=== PATIENT | female | born 1955 | race Caucasian/White ===

== ENCOUNTER 2020-09-08 04:02 | Inpatient (IN) | payer OTHER, MEDICARE ==
[~2020-09-08] VITALS: Ht 167.6 cm; Wt 77.4 kg
[~2020-09-08 04:02] MED LIST: CELE200C PO; ESCI10TA10 PO; ESCI5TAB7 PO; OXYC-307 PO; PREG75CA PO; TRAM50TA2 PO; ZOLP-413 PO; ZOLP10TA PO
--- NOTE | 2020-09-08 04:09 | NUR ---
Pt brought in by L[facility]ZARO from home for chief complaint of left leg hip pain after GLF, no loc reported. CMS intact.
[2020-09-08] MEDS ORDERED: HYDROmorphone 1 MG/ML, 1ML INJ ONE ×2 (04:26→05:25)
[2020-09-08] MEDS: HYDROmorphone 1 MG/ML, 1ML INJ IVPush PRN ×2 (04:27→05:31)
[2020-09-08 05:26] LABS: BASOPHILS % (AUTO) 0 % (0-1); EOSINOPHILS % (AUTO) 1 % (1-7); LYMPHOCYTES % (AUTO) 15 % (22-44); MEAN CORPUSCULAR HEMOGLOBIN 30.6 pg (27.0-34.8); MEAN CORPUSCULAR HGB CONC 33.3 g/dL (32.4-35.8); MEAN PLATELET VOLUME 7.6 fL (7.4-10.4); MONOCYTES % (AUTO) 8 % (2-9); NEUTROPHILS % (AUTO) 76 % (42-75); PLATELET COUNT 334 x10^3/uL (130-400); RED BLOOD COUNT 4.25 x10^6/uL (3.82-5.3); RED CELL DISTRIBUTION WIDTH 14.2 % (9.6-15.2)
[2020-09-08 05:29] LABS: MD NO
--- NOTE | 2020-09-08 05:32 | NUR ---
BIPIN Mo at bedside to discuss poc
[2020-09-08 05:37] LABS: ALBUMIN 3.6 g/dL (3.4-5.0); ANION GAP 8 mmol/L (5-15); CHLORIDE 106 mmol/L (98-107)
[2020-09-08 05:40] LABS: ALANINE AMINOTRANSFERASE 24 U/L (12-78); ALKALINE PHOSPHATASE 67 U/L (45-117); BILIRUBIN,TOTAL 0.4 mg/dL (0.2-1.0); CREATININE 0.97 mg/dL (0.55-1.02); TOTAL PROTEIN 6.8 g/dL (6.4-8.2)
[2020-09-08 06:22] LABS: MICROSCOPIC INDICATED
[2020-09-08] MEDS ORDERED: ACETAMINOPHEN 325 MG TABLET PO PRN ×2 (06:30→11:30)
[2020-09-08] MEDS ORDERED: GUAIFENESIN/DM 200-20MG, 10ML UDC PO PRN (06:30)
[2020-09-08] MEDS ORDERED: CEFTRIAXONE PMX 1GM/50ML 50 ML IV SCH (06:30)
[2020-09-08] MEDS ORDERED: ONDANSETRON ODT 4 MG PO PRN (06:30)
[2020-09-08] MEDS ORDERED: BUTALB/APAP/CAFFEINE 50MG/325MG/40MG PO PRN (06:30)
[2020-09-08] MEDS ORDERED: ENALAPRILAT 1.25 MG/ML, 2ML IVPush PRN (06:30)
[2020-09-08] MEDS ORDERED: ONDANSETRON 2MG/ML, 2ML IVPush PRN ×2 (06:30→11:30)
--- NOTE | 2020-09-08 07:06 | NUR ---
Report to Sheryl SELLERS
[2020-09-08] MEDS ORDERED: HYDROmorphone 2 MG/ML, 1ML ONE ×2 (07:55→11:05)
[2020-09-08] MEDS: HYDROmorphone 2 MG/ML, 1ML IVPush PRN ×3 (07:58→22:02)
[2020-09-08] MEDS ORDERED: CEFTRIAXONE PMX 1GM/50ML 50 ML ONE (08:54)
[2020-09-08] MEDS: ESCITALOPRAM 10MG TABLET PO SCH (09:00)
[2020-09-08] MEDS: SENNA/DOCUSATE TABLET PO SCH (09:00)
[2020-09-08] MEDS: POTASSIUM CHLORIDE 20 MEQ in LACTATED RINGERS 1,000 ML IV SCH ×2 (09:01→21:28)
[2020-09-08] MEDS ORDERED: hydrALAzine 20 MG/ML, 1ML IV PRN (11:30)
[2020-09-08] MEDS ORDERED: HYDROmorphone 1 MG/ML, 1ML INJ IVPush PRN (11:30)
[2020-09-08] MEDS ORDERED: EPHEDRINE 50 MG/ML, 1ML IVPush PRN (11:30)
[2020-09-08] MEDS ORDERED: OXYcodone 5 MG/5 ML ORAL.SOL UDC PO PRN (11:30)
[2020-09-08] MEDS ORDERED: LABETALOL 5MG/ML, 20ML IV PRN (11:30)
[2020-09-08] MEDS ORDERED: PROMETHAZINE 25 MG/ML, 1ML IVPush PRN (11:30)
[2020-09-08] MEDS: PLEASE ENTER WEIGHT MC SCH ×2 (12:00→20:00)
[2020-09-08] MEDS ORDERED: CHLORHEXIDINE 15 ML UDC ONE ×2 (12:20→12:33)
[2020-09-08] MEDS ORDERED: CHLORHEXIDINE 15 ML UDC MM ONE (12:30)
[2020-09-08] MEDS ORDERED: FENTANYL PF 250 MCG/5ML ONE (12:44)
[2020-09-08] MEDS ORDERED: CEFAZOLIN 1,000 MG ONE (12:48)
[2020-09-08] MEDS ORDERED: PROPOFOL 10 MG/ML, 20ML ONE (12:48)
[2020-09-08] MEDS ORDERED: SUCCINYLCHOLINE 20 MG/ML, 10ML ONE (12:48)
[2020-09-08] MEDS ORDERED: DEXAMETHASONE 4 MG/ML, 1ML ONE (12:48)
[2020-09-08] MEDS ORDERED: ONDANSETRON 2MG/ML, 2ML ONE (12:48)
[2020-09-08] MEDS ORDERED: KETOROLAC 30 MG/1 ML ONE (13:23)
[2020-09-08] MEDS ORDERED: EPHEDRINE 50 MG/ML, 1ML ONE (13:24)
[2020-09-08] MEDS ORDERED: OXYcodone 5 MG/5 ML ORAL.SOL UDC ONE (14:19)
[2020-09-08] MEDS ORDERED: FENTANYL PF 100 MCG/2ML ONE (14:19)
[2020-09-08] MEDS ORDERED: ACETAMINOPHEN 650 MG/20.3 ML UDC ONE (14:19)
[2020-09-08] MEDS: FENTANYL PF 100 MCG/2ML IV PRN ×2 (14:33→14:44)
[2020-09-08] MEDS ORDERED: HYDROmorphone 2 MG/ML, 1ML IVPush PRN (16:00)
[2020-09-08] MEDS ORDERED: HYDROcodone/APAP 7.5-325MG/15ML UDC PO PRN (16:00)
[2020-09-08] MEDS ORDERED: ONDANSETRON 2MG/ML, 2ML IV PRN (16:00)
[2020-09-08] MEDS ORDERED: TRAM50TA2 PO (16:05)
[2020-09-08] MEDS ORDERED: PREG75CA PO (16:05)
[2020-09-08] MEDS: PREGABALIN 75 MG CAPSULE PO SCH ×2 (16:28→21:38)
[2020-09-08] MEDS: KETOROLAC 30 MG/1 ML IV SCH ×2 (16:28→23:59)
[2020-09-08] MEDS: OXYcodone/APAP 10/325MG TABLET PO PRN (18:32)
[2020-09-08] MEDS: GABAPENTIN 300 MG CAPSULE PO PRN (18:32)
[2020-09-08] MEDS: BACLOFEN 10 MG TABLET PO PRN (18:32)
[2020-09-08 19:31] VITALS: BP 110/75
[2020-09-08] MEDS ORDERED: PREGABALIN 75 MG CAPSULE PO SCH (21:00)
[2020-09-08] MEDS: CEFAZOLIN PMX 2GM/50ML 50 ML IVPB SCH (21:32)
[2020-09-08] MEDS: MELATONIN 5 MG TABLET PO SCH (21:34)
[2020-09-08] MEDS: ZOLPIDEM 10MG TABLET PO SCH (21:38)
[2020-09-08] MEDS: DOCUSATE 100 MG CAPSULE PO SCH (21:38)
[2020-09-09 00:35] VITALS: BP 119/76
[2020-09-09] MEDS: OXYcodone/APAP 10/325MG TABLET PO PRN ×3 (00:51→20:39)
[2020-09-09] MEDS: PLEASE ENTER WEIGHT MC SCH (03:49)
[2020-09-09 04:25] VITALS: BP 118/75
[2020-09-09 04:56] VITALS: BP 124/79
[2020-09-09] MEDS: CEFAZOLIN PMX 2GM/50ML 50 ML IVPB SCH (05:01)
[2020-09-09] MEDS: PREGABALIN 75 MG CAPSULE PO SCH ×4 (05:03→20:38)
[2020-09-09 05:24] LABS: BASOPHILS % (AUTO) 0 % (0-1); EOSINOPHILS % (AUTO) 0 % (1-7); LYMPHOCYTES % (AUTO) 12 % (22-44); MEAN CORPUSCULAR HEMOGLOBIN 31.9 pg (27.0-34.8); MEAN CORPUSCULAR HGB CONC 34.7 g/dL (32.4-35.8); MEAN PLATELET VOLUME 7.7 fL (7.4-10.4); MONOCYTES % (AUTO) 17 % (2-9); NEUTROPHILS % (AUTO) 70 % (42-75); PLATELET COUNT 229 x10^3/uL (130-400); RED BLOOD COUNT 2.66 x10^6/uL (3.82-5.3); RED CELL DISTRIBUTION WIDTH 14.2 % (9.6-15.2)
[2020-09-09 05:25] LABS: MD NO
[2020-09-09 05:39] LABS: ANION GAP 3 mmol/L (5-15); CALCIUM 8.3 mg/dL (8.5-10.1); CHLORIDE 101 mmol/L (98-107); CREATININE 0.69 mg/dL (0.55-1.02)
[2020-09-09] MEDS: ENOXAPARIN 40 MG/0.4 ML SQ SCH (06:23)
[2020-09-09] MEDS: SENNA/DOCUSATE TABLET PO SCH (07:52)
[2020-09-09] MEDS: KETOROLAC 30 MG/1 ML IV SCH (07:52)
[2020-09-09] MEDS: GABAPENTIN 300 MG CAPSULE PO PRN (07:52)
[2020-09-09] MEDS: ESCITALOPRAM 10MG TABLET PO SCH (07:52)
[2020-09-09] MEDS: DOCUSATE 100 MG CAPSULE PO SCH ×2 (07:52→20:39)
[2020-09-09 08:48] VITALS: BP 117/77
[2020-09-09] MEDS: CEFDINIR 300 MG CAPSULE PO SCH ×2 (09:30→20:38)
[2020-09-09 12:00] VITALS: BP 121/79
[2020-09-09 19:51] VITALS: BP 112/51
[2020-09-09] MEDS: ZOLPIDEM 10MG TABLET PO SCH ×2 (20:39→20:41)
[2020-09-09] MEDS: MELATONIN 5 MG TABLET PO SCH (20:39)
[2020-09-10] MEDS: OXYcodone/APAP 10/325MG TABLET PO PRN ×3 (00:53→14:45)
[2020-09-10] MEDS: BACLOFEN 10 MG TABLET PO PRN ×3 (00:53→16:49)
[2020-09-10 01:23] VITALS: BP 106/53
[2020-09-10] MEDS: GABAPENTIN 300 MG CAPSULE PO PRN ×2 (02:43→21:17)
[2020-09-10] MEDS: PREGABALIN 75 MG CAPSULE PO SCH ×4 (05:37→21:17)
[2020-09-10] MEDS: ENOXAPARIN 40 MG/0.4 ML SQ SCH (05:37)
[2020-09-10 07:56] VITALS: BP 102/59
[2020-09-10 08:30] VITALS: BP 118/58
[2020-09-10] MEDS: DOCUSATE 100 MG CAPSULE PO SCH ×2 (08:39→21:17)
[2020-09-10] MEDS: SENNA/DOCUSATE TABLET PO SCH (08:39)
[2020-09-10] MEDS: CEFDINIR 300 MG CAPSULE PO SCH ×2 (08:39→21:17)
[2020-09-10] MEDS: ESCITALOPRAM 10MG TABLET PO SCH (08:39)
[2020-09-10 13:07] VITALS: BP 128/71
[2020-09-10] MEDS: HYDROcodone/APAP 5/325 TABLET PO PRN (19:43)
[2020-09-10 20:22] VITALS: BP 123/75
[2020-09-10] MEDS: MELATONIN 5 MG TABLET PO SCH (21:17)
[2020-09-10] MEDS: ZOLPIDEM 10MG TABLET PO SCH (21:17)
[2020-09-11 01:56] VITALS: BP 100/63
[2020-09-11] MEDS: HYDROcodone/APAP 5/325 TABLET PO PRN ×5 (02:01→20:42)
[2020-09-11] MEDS: BACLOFEN 10 MG TABLET PO PRN (02:01)
[2020-09-11] MEDS: PREGABALIN 75 MG CAPSULE PO SCH ×4 (05:16→19:47)
[2020-09-11] MEDS: ENOXAPARIN 40 MG/0.4 ML SQ SCH (05:17)
[2020-09-11 06:43] VITALS: BP 110/69
[2020-09-11] MEDS: ESCITALOPRAM 10MG TABLET PO SCH (08:54)
[2020-09-11] MEDS: SENNA/DOCUSATE TABLET PO SCH (08:54)
[2020-09-11] MEDS: DOCUSATE 100 MG CAPSULE PO SCH ×2 (08:54→19:47)
[2020-09-11 10:21] LABS: BASOPHILS % (AUTO) 1 % (0-1); EOSINOPHILS % (AUTO) 1 % (1-7); LYMPHOCYTES % (AUTO) 16 % (22-44); MEAN CORPUSCULAR HEMOGLOBIN 31.9 pg (27.0-34.8); MEAN CORPUSCULAR HGB CONC 34.8 g/dL (32.4-35.8); MEAN PLATELET VOLUME 7.8 fL (7.4-10.4); MONOCYTES % (AUTO) 14 % (2-9); NEUTROPHILS % (AUTO) 68 % (42-75); PLATELET COUNT 216 x10^3/uL (130-400); RED BLOOD COUNT 1.96 x10^6/uL (3.82-5.3); RED CELL DISTRIBUTION WIDTH 14.3 % (9.6-15.2)
[2020-09-11 10:32] LABS: ALBUMIN 2.9 g/dL (3.4-5.0); ANION GAP 6 mmol/L (5-15); CALCIUM 8.1 mg/dL (8.5-10.1); CHLORIDE 105 mmol/L (98-107); CREATININE 0.63 mg/dL (0.55-1.02)
[2020-09-11 10:35] VITALS: BP 116/63
[2020-09-11 10:37] LABS: MD SCAN
[2020-09-11 12:32] VITALS: BP 106/58
[2020-09-11] MEDS: ASCORBIC ACID 500 MG TABLET PO SCH ×2 (15:15→20:43)
[2020-09-11] MEDS: MAGNESIUM HYDROXIDE 8%, 30ML UDC PO SCH (16:27)
[2020-09-11] MEDS: MELATONIN 5 MG TABLET PO SCH (19:47)
[2020-09-11] MEDS: ZOLPIDEM 10MG TABLET PO SCH (19:47)
[2020-09-11 20:14] VITALS: BP 125/76
[2020-09-12] MEDS: HYDROcodone/APAP 5/325 TABLET PO PRN ×4 (01:33→20:12)
[2020-09-12 02:12] VITALS: BP 126/75
[2020-09-12] MEDS: GABAPENTIN 300 MG CAPSULE PO PRN ×2 (02:34→23:23)
[2020-09-12] MEDS: BACLOFEN 10 MG TABLET PO PRN ×2 (04:56→20:12)
[2020-09-12] MEDS: PREGABALIN 75 MG CAPSULE PO SCH ×4 (05:35→20:12)
[2020-09-12] MEDS: ENOXAPARIN 40 MG/0.4 ML SQ SCH (05:36)
[2020-09-12 06:18] LABS: BASOPHILS % (AUTO) 1 % (0-1); EOSINOPHILS % (AUTO) 2 % (1-7); LYMPHOCYTES % (AUTO) 24 % (22-44); MEAN CORPUSCULAR HEMOGLOBIN 32.1 pg (27.0-34.8); MEAN CORPUSCULAR HGB CONC 34.7 g/dL (32.4-35.8); MEAN PLATELET VOLUME 7.5 fL (7.4-10.4); MONOCYTES % (AUTO) 11 % (2-9); NEUTROPHILS % (AUTO) 62 % (42-75); PLATELET COUNT 241 x10^3/uL (130-400); RED BLOOD COUNT 1.95 x10^6/uL (3.82-5.3)
[2020-09-12] MEDS: MAGNESIUM HYDROXIDE 8%, 30ML UDC PO SCH ×3 (06:45→20:12)
[2020-09-12 06:49] LABS: MD SCAN
[2020-09-12 07:26] VITALS: BP 119/66
[2020-09-12] MEDS: SENNA/DOCUSATE TABLET PO SCH (09:00)
[2020-09-12] MEDS: ASCORBIC ACID 500 MG TABLET PO SCH ×2 (09:31→16:16)
[2020-09-12] MEDS: ESCITALOPRAM 10MG TABLET PO SCH (09:32)
[2020-09-12] MEDS: DOCUSATE 100 MG CAPSULE PO SCH ×2 (09:32→20:12)
[2020-09-12 14:52] VITALS: BP 111/64
[2020-09-12 19:35] VITALS: BP 116/71
[2020-09-12] MEDS: MELATONIN 5 MG TABLET PO SCH (20:12)
[2020-09-12] MEDS: ZOLPIDEM 10MG TABLET PO SCH (23:05)
[2020-09-12] MEDS: LIDODERM 5% PATCH TD PRN (23:23)
[2020-09-13] VITALS (11 sets, daily range): BP systolic 110–131; BP diastolic 56–75
[2020-09-13] MEDS: OXYcodone 5 MG/5 ML ORAL.SOL UDC PO PRN ×3 (00:03→14:33)
[2020-09-13] MEDS: ENOXAPARIN 40 MG/0.4 ML SQ SCH (06:00)
[2020-09-13] MEDS: PREGABALIN 75 MG CAPSULE PO SCH ×4 (06:07→22:51)
[2020-09-13] MEDS: SENNA/DOCUSATE TABLET PO SCH (09:09)
[2020-09-13] MEDS: MAGNESIUM HYDROXIDE 8%, 30ML UDC PO SCH ×2 (09:09→21:00)
[2020-09-13] MEDS: ASCORBIC ACID 500 MG TABLET PO SCH ×2 (09:09→15:55)
[2020-09-13] MEDS: DOCUSATE 100 MG CAPSULE PO SCH ×2 (09:09→21:00)
[2020-09-13] MEDS: ESCITALOPRAM 10MG TABLET PO SCH (09:09)
[2020-09-13] MEDS ORDERED: METHYLNALTREXONE 12 MG/0.6 ML SYR SQ SCH (09:30)
[2020-09-13] MEDS: BACLOFEN 10 MG TABLET PO PRN (18:24)
[2020-09-13] MEDS: OXYcodone/APAP 10/325MG TABLET PO PRN (20:20)
[2020-09-13] MEDS: LIDODERM 5% PATCH TD PRN (21:36)
[2020-09-13] MEDS: ZOLPIDEM 10MG TABLET PO SCH (22:51)
[2020-09-13] MEDS: MELATONIN 5 MG TABLET PO SCH (22:51)
[2020-09-14 02:31] VITALS: BP 141/73
[2020-09-14] MEDS: OXYcodone/APAP 10/325MG TABLET PO PRN ×3 (02:39→15:26)
[2020-09-14] MEDS: PREGABALIN 75 MG CAPSULE PO SCH ×3 (06:25→15:26)
[2020-09-14 06:27] LABS: BASOPHILS % (AUTO) 1 % (0-1); EOSINOPHILS % (AUTO) 3 % (1-7); LYMPHOCYTES % (AUTO) 19 % (22-44); MEAN CORPUSCULAR HEMOGLOBIN 30.3 pg (27.0-34.8); MEAN CORPUSCULAR HGB CONC 33.8 g/dL (32.4-35.8); MEAN PLATELET VOLUME 7.2 fL (7.4-10.4); MONOCYTES % (AUTO) 12 % (2-9); NEUTROPHILS % (AUTO) 66 % (42-75); PLATELET COUNT 393 x10^3/uL (130-400); RED BLOOD COUNT 2.49 x10^6/uL (3.82-5.3); RED CELL DISTRIBUTION WIDTH 15.9 % (9.6-15.2)
[2020-09-14 06:29] LABS: CHLORIDE 105 mmol/L (98-107)
[2020-09-14 06:42] LABS: ALANINE AMINOTRANSFERASE 43 U/L (12-78); ALBUMIN 2.8 g/dL (3.4-5.0); ANION GAP 6 mmol/L (5-15); CALCIUM 8.3 mg/dL (8.5-10.1); CREATININE 0.64 mg/dL (0.55-1.02)
[2020-09-14 06:44] LABS: ALKALINE PHOSPHATASE 58 U/L (45-117); BILIRUBIN,TOTAL 0.8 mg/dL (0.2-1.0); TOTAL PROTEIN 5.9 g/dL (6.4-8.2)
[2020-09-14 07:16] LABS: MD MORPH REVIEW ONLY
[2020-09-14 07:46] LABS: <PLATELET ESTIMATE> ADEQUATE; <PLT MORPHOLOGY> NORMAL PLT MORPH; ANISOCYTOSIS 1+; POLYCHROMASIA 1+
[2020-09-14 08:02] VITALS: BP 114/64
[2020-09-14] MEDS: ENOXAPARIN 40 MG/0.4 ML SQ SCH (09:26)
[2020-09-14] MEDS: ASCORBIC ACID 500 MG TABLET PO SCH (09:26)
[2020-09-14] MEDS: SENNA/DOCUSATE TABLET PO SCH (09:26)
[2020-09-14] MEDS: DOCUSATE 100 MG CAPSULE PO SCH (09:26)
[2020-09-14] MEDS: MAGNESIUM HYDROXIDE 8%, 30ML UDC PO SCH (09:27)
[2020-09-14] MEDS: ESCITALOPRAM 10MG TABLET PO SCH (09:27)
[2020-09-14 13:24] VITALS: BP 120/76
[2020-09-14] MEDS ORDERED: ASPI81TA45 PO (14:13)
[2020-09-14] MEDS ORDERED: HYDR-3653 PO (14:17)
[2020-09-14] MEDS ORDERED: DOCU100C33 PO (14:20)
== END 2020-09-14 17:10 | disposition home health service (06) | DRG 480 ==
LOC: ED 05:20 → EDIP 05:44 → 4NE 15:25
PROVIDERS: ADMIT Hospitalist; ATTEND Hospitalist
PROC: 0T9B70Z Drainage of Bladder with Drainage Device, Via Natural or Artificial Opening (ICD-10-PCS; 2020-09-08)
PROC: 0QS736Z Reposition Left Upper Femur with Intramedullary Internal Fixation Device, Percutaneous Approach (ICD-10-PCS; principal; 2020-09-08 16:30)
DX: S72.142A Displaced intertrochanteric fracture of left femur, initial encounter for closed fracture (principal); N17.0 Acute kidney failure with tubular necrosis; D62 Acute posthemorrhagic anemia; F05 Delirium due to known physiological condition; N39.0 Urinary tract infection, site not specified; E86.0 Dehydration; E87.6 Hypokalemia; G89.29 Other chronic pain; F32.9 Major depressive disorder, single episode, unspecified; K59.03 Drug induced constipation; Z20.828 Contact with and (suspected) exposure to other viral communicable diseases; M19.90 Unspecified osteoarthritis, unspecified site; S72.22XA Displaced subtrochanteric fracture of left femur, initial encounter for closed fracture; W18.39XA Other fall on same level, initial encounter; T40.605A Adverse effect of unspecified narcotics, initial encounter; Z98.1 Arthrodesis status; Z88.5 Allergy status to narcotic agent; Z91.040 Latex allergy status; Y93.89 Activity, other specified; Y92.098 Other place in other non-institutional residence as the place of occurrence of the external cause; Y99.8 Other external cause status
CPT/HCPCS: 36415; 70450; 71045; 76000; 80048; 80053; 80069; 81001; 83735; 85014; 85018; 85025; 86850; 86900; 86923; 87086; 87635; 93005; 93970; 99285; C1713; G0378; J0690; J0696; J1100; J1170; J1650; J1885; J2405; J2704; J3010; J3480; J0330; J7120; P9016